=== PATIENT | male | born 1995 ===

== ENCOUNTER 2017-06-11 21:07 | Emergency (ER) | payer SELFPAY ==
[2017-06-11 21:24] VITALS: BP 127/75; PULSE 80; RESP 17; TEMP 98.1; O2SAT 100
--- NOTE | 2017-06-11 23:05 | C.PDOC ---
History Of Present Illness 22 y/o male presents to ED for evaluation of bilateral knee pain since this morning. Pt states pain is worse with movement, and bending the knee. Has a history of similar episodes at which time he was prescribed Gabapentin and Naproxen. He notes he is on his feet a lot during work which exacerbated the symptoms, he has previously changed his job secondary to pain in his knees. Otherwise, denies any fall, injury, extremity weakness/numbness, fever, or any other associated symptoms at this time. Time Seen by Provider: 06/11/17 22:16 Chief Complaint (Nursing): Lower Extremity Problem/Injury History Per: Patient History/Exam Limitations: no limitations Onset/Duration Of Symptoms: Days Current Symptoms Are (Timing): Still Present Severity: Moderate Pain Scale Rating Of: 7 Recent travel outside of the [place]: No Additional History Per: Patient Past Medical History Reviewed: Historical Data, Nursing Documentation, Vital Signs Vital Signs: Last Vital Signs Temp 98.1 F 06/11/17 21:22 Pulse 80 06/11/17 21:22 Resp 17 06/11/17 21:22 BP 127/75 06/11/17 21:22 Pulse Ox 100 06/11/17 23:34 - Medical History PMH: Anxiety, Asthma, Bipolar Disorder, Depression, Hepatitis (Hep A ) Denies: Diabetes, HIV, HTN, Schizophrenia, Seizures, Sexually Transmitted Disease Surgical History: Tonsillectomy - [facility] Procedures GROUP CHORUS MASTER FOR SUBSTANCE ABUSE TREATMENT, PSYCHOEDUCATION (08/06/16) GROUP PSYCHOTHERAPY (05/21/16) INDIVIDUAL PSYCHOTHERAPY, SUPPORTIVE (05/21/16) Family History: States: Unknown Family Hx, Diabetes - Social History Hx Tobacco Use: Yes Hx Alcohol Use: Yes (In remission ) Hx Substance Use: No - Immunization History Hx Tetanus Toxoid Vaccination: No Hx Influenza Vaccination: No Hx Pneumococcal Vaccination: No Review Of Systems Except As Marked, All Systems Reviewed And Found Negative. Constitutional: Negative for: Fever, Chills Musculoskeletal: Positive for: Leg Pain (BL knee pain) Neurological: Negative for: Weakness, Numbness Physical Exam - Physical Exam Appears: Non-toxic, No Acute Distress Skin: Normal Color, Warm, Dry, No Rash Head: Atraumatic, Normacephalic Eye(s): bilateral: Normal Inspection, EOMI Nose: Normal Oral Mucosa: Moist Chest: Symmetrical Respiratory: No Accessory Muscle Use Extremity: Normal ROM (FROM of bilateral knees), No Tenderness (no knee tenderness), No Pedal Edema, Capillary Refill (< 2 sec.), No Deformity, No Swelling Extremity: Bilateral: Normal Color And Temperature, Normal ROM Pulses: Left Dorsalis Pedis: Normal, Right Dorsalis Pedis: Normal Neurological/Psych: Oriented x3, Normal Speech, Normal Motor, Normal Sensation Gait: Steady ED Course And Treatment O2 Sat by Pulse Oximetry: 100 Progress Note: Patient was given Tramadol. Offered Xr, pt refused. Patient is being discharged home with instructions to follow up with PMD in 1-2 days . Disposition - Disposition Referrals: Clinic,Med Surg [Primary Care Provider] - Disposition: HOME/ ROUTINE Disposition Time: 23:05 Condition: STABLE Additional Instructions: Rest and ice the area. Follow up with PMD in 1-2 days. Prescriptions: Etodolac [Lodine] 400 mg PO TID #20 tablet Instructions: Knee Pain (ED) Forms: Work Excuse - Clinical Impression Clinical Impression: Knee pain - PA / CHEMIST INSTRUMENTATION / Resident Statement MD/DO has reviewed & agrees with the documentation as recorded. - Scribe Statement The provider has reviewed the documentation as recorded by the Scribe Brian Gannon All medical record entries made by the Tyrese were at my direction and personally dictated by me. I have reviewed the chart and agree that the record accurately reflects my personal performance of the history, physical exam, medical decision making, and the department course for this patient. I have also personally directed, reviewed, and agree with the discharge instructions and disposition.
== END 2017-06-11 23:28 | disposition home or self-care (01) ==
LOC: C.ER 21:07 → SUPCPDRO 21:07 → C.ER 23:28
DX: M25.562 Pain in left knee (principal); M25.561 Pain in right knee

== ENCOUNTER 2017-07-13 08:37 | Emergency (ER) | payer MEDICAID, OTHER ==
[2017-07-13 08:43] VITALS: O2SAT 100
[2017-07-13] MEDS ORDERED: Sodium Chloride 0.9% 1,000 ML IV ONE (09:26)
--- NOTE | 2017-07-13 09:27 | C.PDOC ---
History Of Present Illness 22 Y/O MALE C/O NAUSEA, VOMITINGM AND DIARRHEA SINCE YESTERDAY. PT REPORTS DRINKING ALCOHOL YESTERDAY, LAST DRINK AROUND MIDNIGHT. ALSO REPORTS GENERAL WEAKNESS AND TINGLING SENSATION. DENIES HEADACHE, FEVER, CHILLS, CHEST PAIN, SOB , OR OTHER ASSOC SX. Time Seen by Provider: 07/13/17 09:23 Chief Complaint (Nursing): Abdominal Pain History Per: Patient History/Exam Limitations: no limitations Onset/Duration Of Symptoms: Days Current Symptoms Are (Timing): Still Present Associated Symptoms: Nausea, Vomiting, Diarrhea. denies: Fever, Urinary Symptoms Recent travel outside of the [place]: No Past Medical History Reviewed: Historical Data, Nursing Documentation, Vital Signs Vital Signs: Last Vital Signs Temp 98.8 F 07/13/17 08:40 Pulse 101 H 07/13/17 08:40 Resp 18 07/13/17 08:40 BP 104/68 07/13/17 08:40 Pulse Ox 100 07/13/17 09:32 - Medical History PMH: Anxiety, Asthma, Bipolar Disorder, Depression, Hepatitis (Hep A ) Surgical History: Tonsillectomy - [facility] Procedures GROUP GERIATRIC PSYCHIATRIST FOR SUBSTANCE ABUSE TREATMENT, PSYCHOEDUCATION (08/06/16) GROUP PSYCHOTHERAPY (05/21/16) INDIVIDUAL PSYCHOTHERAPY, SUPPORTIVE (05/21/16) Family History: States: Unknown Family Hx, Diabetes - Social History Hx Tobacco Use: Yes Hx Alcohol Use: Yes (In remission ) Hx Substance Use: No - Immunization History Hx Tetanus Toxoid Vaccination: No Hx Influenza Vaccination: No Hx Pneumococcal Vaccination: No Review Of Systems Except As Marked, All Systems Reviewed And Found Negative. Constitutional: Negative for: Fever, Chills Cardiovascular: Negative for: Chest Pain Respiratory: Negative for: Cough, Shortness of Breath, Wheezing Gastrointestinal: Positive for: Nausea, Vomiting, Diarrhea. Negative for: Abdominal Pain Skin: Negative for: Rash Neurological: Negative for: Headache, Dizziness Physical Exam - Physical Exam Appears: Non-toxic, No Acute Distress Skin: Normal Color, Warm, Dry Head: Atraumatic, Normacephalic Oral Mucosa: Moist Chest: Symmetrical Cardiovascular: Rhythm Regular Respiratory: Normal Breath Sounds, No Rales, No Rhonchi, No Wheezing Gastrointestinal/Abdominal: Soft, No Tenderness, No Guarding, No Rebound Back: Normal Inspection Extremity: Normal ROM, Capillary Refill (< 2 SEC.) Neurological/Psych: Oriented x3, Normal Speech, Normal Cognition ED Course And Treatment - Laboratory Results Result Diagrams: 07/13/17 10:08 07/13/17 10:08 O2 Sat by Pulse Oximetry: 100 (RA) Pulse Ox Interpretation: Normal Reevaluation Time: 12:01 Reassessment Condition: Improved Disposition Counseled Patient/Family Regarding: Studies Performed, Diagnosis, Need For Followup, Rx Given - Disposition Referrals: YOUR,PMD [Other] Disposition: HOME/ ROUTINE Disposition Time: 12:01 Condition: IMPROVED Prescriptions: Ondansetron [Zofran Odt] 4 mg PO TID PRN #9 odt PRN Reason: Nausea/Vomiting Instructions: Acute Nausea and Vomiting (ED) Forms: [facility] [employer] (Kiswahili) - Clinical Impression Clinical Impression: Vomiting - Scribe Statement The provider has reviewed the documentation as recorded by the Scribe SM All medical record entries made by the Scribe were at my direction and personally dictated by me. I have reviewed the chart and agree that the record accurately reflects my personal performance of the history, physical exam, medical decision making, and the department course for this patient. I have also personally directed, reviewed, and agree with the discharge instructions and disposition.
[2017-07-13] MEDS ORDERED: Sodium Chloride 0.9% 1,000 ML ONE (09:53)
[2017-07-13 10:13] LABS: BASO % 0.4 % (0.0-2.0); EOS % 0.1 % (0.0-4.0); HEMATOCRIT 46.8 % (35.0-51.0); LYMPH # 1.2 K/uL (1.0-4.3); LYMPH % 13.1 % (20.0-40.0); MEAN CELL VOLUME 92.2 fL (80.0-94.0); MEAN CORPUSCULAR HGB CONC 34.7 g/dL (33.0-37.0); MEAN PLATELET VOLUME 8.4 fL (7.2-11.7); MONO # 0.5 K/uL (0.0-0.8); MONO % 5.7 % (0.0-10.0); RED CELL DISTRIBUTION WIDTH 12.8 % (11.5-14.5); WHITE BLOOD COUNT 9.2 K/uL (4.8-10.8)
[2017-07-13 10:22] LABS: CHLORIDE 99 mmol/L (98-107); POTASSIUM 4.1 mmol/L (3.6-5.2); SODIUM 144 mmol/L (132-148)
[2017-07-13 10:24] LABS: BILIRUBIN,TOTAL 0.6 mg/dL (0.2-1.3); CARBON DIOXIDE 29 mmol/L (22-30); GFR AFRICAN-AMERICAN > 60
[2017-07-13 10:25] LABS: ALB/GLOB RATIO 1.4 (1.0-2.1); ALKALINE PHOSPHATASE 69 U/L (38-126); ALT/SGPT 102 U/L (21-72); AST/SGOT 49 U/L (17-59); BLOOD UREA NITROGEN 8 mg/dL (9-20); CALCIUM 9.9 mg/dl (8.6-10.4); GLUCOSE,RANDOM 110 mg/dL (75-110); TOTAL PROTEIN 8.3 g/dL (6.3-8.3)
[2017-07-13 12:02] VITALS: BP 116/69; PULSE 81; RESP 16; TEMP 98
== END 2017-07-13 12:41 | disposition home or self-care (01) ==
LOC: C.ER 08:37
DX: R11.10 Vomiting, unspecified (principal)
CPT/HCPCS: 36415; 80053; 83690; 85025; 96372; 96374; 96375; 99284; J0500; J2405; J7040